=== PATIENT | female | born 1955 | race Caucasian/White ===

== ENCOUNTER 2021-04-03 08:19 | Observation (INO) ==
[2021-04-03] MEDS ORDERED: SODIUM CHLORIDE 0.9% 1000ML 1,000 ML IV ONE (08:42)
--- NOTE | 2021-04-03 08:54 | Emergency Department Note ---
History of Present Illness General Chief complaint: Illness Stated complaint: VOMITING, HALLUCINATIONS, LT SIDE ABDOMINAL PAIN Time Seen by Provider: 04/03/21 08:28 Source: patient and family (Son who is at the bedside) Mode of arrival: ambulatory Limitations: no limitations History of Present Illness Maximum Pain Intensity: 0 This patient comes in after feeling sick with diffuse abdominal pain. She says "I do not feel good". She had hip replacement done as an outpatient this past week on . It was a right hip. Dr. Leroy was her surgeon. She took oxycodone through Friday but stopped taking it as she did not feel she needed it. She has been nauseated since Friday and not been able to eat much. She had no bowel movement Friday but has had a small bowel movement since then she had no blood or melena stool or emesis. She is not eating or sleeping. Her son feels she is having mild hallucinations at times no fever. She fell twice on Friday and injured her left shoulder she does not think she hit her head or abdomen. She says she tripped on the walker. She had no chest pain s hortness of breath or pleurisy. No dysuria or hematuria. No back pain. No focal numbness or weakness. No cough. She has had the COVID vaccine and booster. Denies headache, neck pain, or stiffness. Home Medications Medication Instructions Recorded Confirmed Type Marijuana Topical 1 dose DAILY 03/08/21 03/29/21 History albuterol sulfate 90 mcg/actuation 1 inh INHALATION QID PRN 03/08/21 03/29/21 History aerosol inhaler (Ventolin HFA) levothyroxine 75 mcg tablet 75 mcg PO QAM 03/08/21 03/29/21 History multivitamin 1 tab PO QAM 03/08/21 03/08/21 History cephalexin 500 mg capsule 500 mg PO TID 7 Days #21 cap 03/29/21 Rx Allergies Allergy/AdvReac Type Severity Reaction Status Date / Time codeine AdvReac Unknown NAUSEA Verified 03/29/21 07:11 VOMITING oxycodone AdvReac Unknown BAD DREAMS Verified 03/29/21 07:11 Past Med/Surg History Medical History (Updated 04/03/21 @ 11:23 by Henry Swan MD) Asthma LAST INHALER USE 2-3 MONTHS AGO Fear of needles fear of needles/blood draws History of anesthesia reaction Pt reports significant HAs after neuraxial anesthesia in labor Hypothyroidism Surgical History (Updated 04/03/21 @ 11:23 by Henry Swan MD) History of cholecystectomy AND APPENDECTOMY-20 YRS AGO Family History Other Adopted Denies family history of No known health problems Social History Smoking Status: Never smoker Hx Alcohol Use: Yes Alcohol type: beer Hx Substance Use: Yes Substance Use Type Other:: MEDICAL MARIJUANA CARD-TOPICAL OIL PRN-1 X A DAY Preferred Language: Telugu Communication Ability: Effective Conciliator Required: No Beliefs That Will Affect Care: None Current Living Situation: Alone current occupational status: retired Feels Safe at Home: Yes Assistive Devices: Glasses Review of Systems A total of 10 systems reviewed and were otherwise negative Physical Exam Vital Signs Vital Signs - 24 hr 04/03/21 08:24 04/03/21 08:41 04/03/21 09:47 Temperature 36.7 C Temperature Source Temporal Artery Scan Pulse Rate 80 80 94 H Pulse Rate from SpO2 Sensor 89 Pulse Rhythm Regular Respiratory Rate 16 16 19 Blood Pressure 86/47 L Blood Pressure Mean 60 Pulse Oximetry 98 98 96 Oxygen Delivery Method Room Air Room Air Sepsis Recent Fever Within 48 Hours No Sepsis New/Unexplained Change in Mental Status No Sepsis Action Taken by Nursing No Action Required 04/03/21 09:48 04/03/21 10:00 04/03/21 10:01 Temperature Temperature Source Pulse Rate 90 83 84 Pulse Rate from SpO2 Sensor 91 H 82 83 Pulse Rhythm Respiratory Rate 21 27 H 20 Blood Pressure 150/79 H 156/91 H Blood Pressure Mean 102 112 Pulse Oximetry 99 99 100 Oxygen Delivery Method Sepsis Recent Fever Within 48 Hours Sepsis New/Unexplained Change in Mental Status Sepsis Action Taken by Nursing 04/03/21 10:30 Temperature Temperature Source Pulse Rate 77 Pulse Rate from SpO2 Sensor 79 Pulse Rhythm Respiratory Rate 22 Blood Pressure 125/77 Blood Pressure Mean 93 Pulse Oximetry 100 Oxygen Delivery Method Sepsis Recent Fever Within 48 Hours Sepsis New/Unexplained Change in Mental Status Sepsis Action Taken by Nursing General: Well developed well nourished older female who appears uncomfortable butin no acute respiratory distress, breathing comfortably on room air. Normal speech HEENT: Normal cephalic atraumatic. Pupils are equal round and reactive to light. Extraocular movements are intact. Oropharynx is pink with moist mucous membranes. No swelling of the mouth lips or tongue. Neck: Supple with a midline trachea. No meningeal signs or stiffness, no JVD or bruits. No Stridor. Chest: Clear to auscultation bilaterally. No wheezes or rhonchi. No increased work of breathing. There is a bruise on the left shoulder posteriorly but she is not tender Heart: Regular rate and rhythm without murmurs or gallops. Abdomen: Soft nontender, nondistended without rebound guarding or rigidity. Extremities: No cyanosis clubbing or edema. No calf tenderness or assymetry. There is an intact dressing that is dry on the right hip there is no redness around this. Spine/Back. Non tender to palpation. No CVA tenderness Skin: Good turgor without rashes. Neurologic exam: Cranial nerves two through 12 are intact. Motor and sensation are intact and symmetrical throughout. Course Administered Medications Discontinued Medications Sodium Chloride (Nss 1000ml) 1,000 mls @ 999 mls/hr IV .Q1H1M ONE Stop: 04/03/21 09:42 Last Infusion: 04/03/21 10:48 Dose: 0 mls/hr Documented by: [id number] Admin: 04/03/21 08:56 Dose: 999 mls/hr Documented by: [id number] Lorazepam (Ativan) 0.25 mg in 0.5 mls @ 0.5 mls/min IV NOW STA Stop: 04/03/21 09:13 Last Admin: 04/03/21 09:52 Dose: 0.5 mls/min Documented by: [id number] Ioversol (Optiray 320 100ml) 95 ml IV ONCE ONE Stop: 04/03/21 09:46 Last Admin: 04/03/21 09:38 Dose: 95 ml Documented by: [id number] Medical Decision Making Differential Diagnosis Dehydration, sepsis, infection, cardiac disease, Covid, postop complication, ileus, intra-abdominal process, trauma, electrolyte or metabolic abnormality, UTI Medical Records Attestation: I reviewed the patient's medical records. Home Medications Current Medication List: was personally reviewed by me Laboratory Data Attestation: I reviewed the patient's lab results. Result diagrams: 04/03/21 08:55 04/03/21 08:55 Lab Results 04/03/21 04/03/21 04/03/21 Range/Units 08:55 08:55 08:55 WBC 11.98 H (4.8-10.8) K/uL RBC 4.01 L (4.2-5.4) M/uL Hgb 12.6 (12.0-16.0) g/dL POC Hgb (12.0-16.0) g/dl Hct 36.2 L (37-47) % POC Hct (37-47) % MCV 90.3 (80-100) fL MCH 31.4 (25-34) pg MCHC 34.8 (32-36) g/dL RDW Std Deviation 42.7 (36.4-46.3) fL RDW Coeff of Soo 13.0 (11.5-14.5) % Plt Count 343 (130-400) K/uL MPV 10.5 H (7.4-10.4) fL Immature Gran % (Auto) 0.1 % Neut % (Auto) 77.1 % Lymph % (Auto) 14.5 % Hernando % (Auto) 7.4 % Eos % (Auto) 0.8 % Baso % (Auto) 0.1 % Neut # (Auto) 9.23 H (1.4-6.5) K/uL Lymph # (Auto) 1.74 (1.2-3.4) K/uL Hernando # (Auto) 0.89 H (0.11-0.59) K/uL Eos # (Auto) 0.10 (0-0.5) K/uL Baso # (Auto) 0.01 (0-0.2) K/uL Immature Gran # (Auto) 0.01 (0.00-0.02) K/uL PT 11.0 (9.0-12.0) Seconds INR 1.1 (0.9-1.1) APTT 27.2 (21.0-31.0) Seconds PTT Ratio 1.0 POC Sodium (135-144) mmol/L Sodium 133 L (136-145) mmol/L POC Potassium (3.3-5.0) mmol/L Potassium 2.9 L (3.5-5.1) mmol/L POC Chloride (101-112) mmol/L Chloride 100 (98-107) mmol/L Carbon Dioxide 22 (21-32) mmol/L POC Total CO2 (24-31) mmol/L Anion Gap 11 (3-11) POC Anion Gap (16-25) mmol/L POC BUN (7-18) mg/dl BUN 12 (6-23) mg/dl Creatinine 0.48 L (0.6-1.2) mg/dl POC Creatinine (0.6-1.3) mg/dl Est Cr Clr Drug Dosing 105.6 ml/min Est GFR ( Amer) 118.5 ml/min Est GFR (Non-Af Amer) 102.2 ml/min BUN/Creatinine Ratio 25.0 H (10-20) Glucose 129 H (70-99(Fasting)) mg/dl POC Glucose (other) (70-99) mg/dl Lactate (0.4-2.0) mmol/L Calcium 9.5 (8.5-10.1) mg/dl POC Ioniz Calcium Lynette (1.12-1.32) mmol/l Magnesium 2.0 (1.7-2.4) mg/dl Total Bilirubin 1.9 H (0.2-1.0) mg/dl AST 34 (13-39) U/L ALT 39 (7-52) U/L Alkaline Phosphatase 67 (34-104) U/L Troponin I < 0.03 (0-0.04) ng/ml Total Protein 6.6 (6.0-8.3) gm/dl Albumin 3.7 (3.4-5.0) gm/dl Globulin 2.9 (2.5-4.0) gm/dl Albumin/Globulin Ratio 1.3 (0.9-2) Procalcitonin (0-0.5) ng/ml Urine Color Urine Appearance (Clear) Urine pH (4.5-7.5) Ur Specific Cofield (1.000-1.030) Urine Protein (Negative) Urine Glucose (UA) (Negative) Urine Ketones (Negative) Urine Blood (Negative) Urine Nitrite (Negative) Urine Bilirubin (Negative) Urine Urobilinogen (Negative) Ur Leukocyte Esterase (Negative) Urine WBC (Auto) (0-5) /hpf Urine RBC (Auto) (0-4) /hpf U Hyaline Cast (Auto) (0-5) /lpf U Epithel Cells (Auto) (0-5) /lpf Urine Bacteria (Auto) (Negative) SARS-CoV-2, RNA, NAAT (NEGATIVE) 04/03/21 04/03/21 04/03/21 Range/Units 08:55 08:55 08:55 WBC (4.8-10.8) K/uL RBC (4.2-5.4) M/uL Hgb (12.0-16.0) g/dL POC Hgb (12.0-16.0) g/dl Hct (37-47) % POC Hct (37-47) % MCV (80-100) fL MCH (25-34) pg MCHC (32-36) g/dL RDW Std Deviation (36.4-46.3) fL RDW Coeff of Soo (11.5-14.5) % Plt Count (130-400) K/uL MPV (7.4-10.4) fL Immature Gran % (Auto) % Neut % (Auto) % Lymph % (Auto) % Hernando % (Auto) % Eos % (Auto) % Baso % (Auto) % Neut # (Auto) (1.4-6.5) K/uL Lymph # (Auto) (1.2-3.4) K/uL Hernando # (Auto) (0.11-0.59) K/uL Eos # (Auto) (0-0.5) K/uL Baso # (Auto) (0-0.2) K/uL Immature Gran # (Auto) (0.00-0.02) K/uL PT (9.0-12.0) Seconds INR (0.9-1.1) APTT (21.0-31.0) Seconds PTT Ratio POC Sodium (135-144) mmol/L Sodium (136-145) mmol/L POC Potassium (3.3-5.0) mmol/L Potassium (3.5-5.1) mmol/L POC Chloride (101-112) mmol/L Chloride (98-107) mmol/L Carbon Dioxide (21-32) mmol/L POC Total CO2 (24-31) mmol/L Anion Gap (3-11) POC Anion Gap (16-25) mmol/L POC BUN (7-18) mg/dl BUN (6-23) mg/dl Creatinine (0.6-1.2) mg/dl POC Creatinine (0.6-1.3) mg/dl Est Cr Clr Drug Dosing ml/min Est GFR ( Amer) ml/min Est GFR (Non-Af Amer) ml/min BUN/Creatinine Ratio (10-20) Glucose (70-99(Fasting)) mg/dl POC Glucose (other) (70-99) mg/dl Lactate 1.4 (0.4-2.0) mmol/L Calcium (8.5-10.1) mg/dl POC Ioniz Calcium Lynette (1.12-1.32) mmol/l Magnesium (1.7-2.4) mg/dl Total Bilirubin (0.2-1.0) mg/dl AST (13-39) U/L ALT (7-52) U/L Alkaline Phosphatase (34-104) U/L Troponin I (0-0.04) ng/ml Total Protein (6.0-8.3) gm/dl Albumin (3.4-5.0) gm/dl Globulin (2.5-4.0) gm/dl Albumin/Globulin Ratio (0.9-2) Procalcitonin < 0.05 (0-0.5) ng/ml Urine Color Urine Appearance (Clear) Urine pH (4.5-7.5) Ur Specific Cofield (1.000-1.030) Urine Protein (Negative) Urine Glucose (UA) (Negative) Urine Ketones (Negative) Urine Blood (Negative) Urine Nitrite (Negative) Urine Bilirubin (Negative) Urine Urobilinogen (Negative) Ur Leukocyte Esterase (Negative) Urine WBC (Auto) (0-5) /hpf Urine RBC (Auto) (0-4) /hpf U Hyaline Cast (Auto) (0-5) /lpf U Epithel Cells (Auto) (0-5) /lpf Urine Bacteria (Auto) (Negative) SARS-CoV-2, RNA, NAAT NEGATIVE (NEGATIVE) 04/03/21 04/03/21 Range/Units 09:05 09:49 WBC (4.8-10.8) K/uL RBC (4.2-5.4) M/uL Hgb (12.0-16.0) g/dL POC Hgb 12.6 (12.0-16.0) g/dl Hct (37-47) % POC Hct 37 (37-47) % MCV (80-100) fL MCH (25-34) pg MCHC (32-36) g/dL RDW Std Deviation (36.4-46.3) fL RDW Coeff of Soo (11.5-14.5) % Plt Count (130-400) K/uL MPV (7.4-10.4) fL Immature Gran % (Auto) % Neut % (Auto) % Lymph % (Auto) % Hernando % (Auto) % Eos % (Auto) % Baso % (Auto) % Neut # (Auto) (1.4-6.5) K/uL Lymph # (Auto) (1.2-3.4) K/uL Hernando # (Auto) (0.11-0.59) K/uL Eos # (Auto) (0-0.5) K/uL Baso # (Auto) (0-0.2) K/uL Immature Gran # (Auto) (0.00-0.02) K/uL PT (9.0-12.0) Seconds INR (0.9-1.1) APTT (21.0-31.0) Seconds PTT Ratio POC Sodium 134 L (135-144) mmol/L Sodium (136-145) mmol/L POC Potassium 2.8 L (3.3-5.0) mmol/L Potassium (3.5-5.1) mmol/L POC Chloride 98 L (101-112) mmol/L Chloride (98-107) mmol/L Carbon Dioxide (21-32) mmol/L POC Total CO2 25 (24-31) mmol/L Anion Gap (3-11) POC Anion Gap 14.0 L (16-25) mmol/L POC BUN 12 (7-18) mg/dl BUN (6-23) mg/dl Creatinine (0.6-1.2) mg/dl POC Creatinine 0.5 L (0.6-1.3) mg/dl Est Cr Clr Drug Dosing ml/min Est GFR ( Amer) ml/min Est GFR (Non-Af Amer) ml/min BUN/Creatinine Ratio (10-20) Glucose (70-99(Fasting)) mg/dl POC Glucose (other) 134 H (70-99) mg/dl Lactate (0.4-2.0) mmol/L Calcium (8.5-10.1) mg/dl POC Ioniz Calcium Lynette 1.22 (1.12-1.32) mmol/l Magnesium (1.7-2.4) mg/dl Total Bilirubin (0.2-1.0) mg/dl AST (13-39) U/L ALT (7-52) U/L Alkaline Phosphatase (34-104) U/L Troponin I (0-0.04) ng/ml Total Protein (6.0-8.3) gm/dl Albumin (3.4-5.0) gm/dl Globulin (2.5-4.0) gm/dl Albumin/Globulin Ratio (0.9-2) Procalcitonin (0-0.5) ng/ml Urine Color Yellow Urine Appearance Clear (Clear) Urine pH 7.5 (4.5-7.5) Ur Specific Cofield 1.006 (1.000-1.030) Urine Protein Negative (Negative) Urine Glucose (UA) Negative (Negative) Urine Ketones Trace H (Negative) Urine Blood Trace H (Negative) Urine Nitrite Negative (Negative) Urine Bilirubin Negative (Negative) Urine Urobilinogen Negative (Negative) Ur Leukocyte Esterase Negative (Negative) Urine WBC (Auto) 0 (0-5) /hpf Urine RBC (Auto) 0-4 (0-4) /hpf U Hyaline Cast (Auto) 0 (0-5) /lpf U Epithel Cells (Auto) 5-10 H (0-5) /lpf Urine Bacteria (Auto) Negative (Negative) SARS-CoV-2, RNA, NAAT (NEGATIVE) Imaging Data Attestation: I personally reviewed and interpreted this imaging study as follows: My Impression: Chest x-rayno acute infiltrate, failure, pneumothorax seen Radiologist's Impression: Chest X-Ray 04/03/21 08:41 XR chest 1V portable HISTORY: 65 years-old Female SEPSIS acute sepsis COMPARISON: None TECHNIQUE: Portable AP view of the chest FINDINGS: The cardiomediastinal and hilar silhouettes are within normal limits. No pneumothorax, pleural effusion, airspace consolidation or overt pulmonary edema. Bones of the chest appear grossly intact. IMPRESSION: No acute process. ACT 112: Negative or not required by law. The above report was generated using voice recognition software. It may contain grammatical, syntax or spelling errors. Electronically signed by: Anatoly Mcguire M.D. 04/03/2021 9:[address] 04/03/21 09:07 CT head/brain wo con CLINICAL HISTORY: 65 years-old Female with VOMITING, FALL. Acute head injury status post fall TECHNIQUE: Multiple axial CT images of the head were obtained without contrast. A dose lowering technique was utilized adhering to the principles of ALARA. CT DOSE: 863.46 mGy.cm COMPARISON: None. FINDINGS: No acute intracranial hemorrhage, midline shift, intracranial mass, hydrocephalus, territorial ischemia or abnormal extra-axial collection.. Mild white matter hypodensities suggest chronic microvascular ischemic disease. The calvarium is intact. The paranasal sinuses, mastoid air cells, and middle ear cavities are clear. IMPRESSION: No acute intracranial abnormality or calvarial fracture. ACT 112: Negative or not required by law. The above report was generated using voice recognition software. It may contain grammatical, syntax or spelling errors. Electronically signed by: Anatoly Mcguire M.D. 04/03/2021 10:07 AM Abdomen/Pelvis CT 04/03/21 09:08 CT SCAN OF THE ABDOMEN AND PELVIS WITH IV CONTRAST CLINICAL HISTORY: Generalized abdominal pain. Vomiting. Fall. COMPARISON STUDY: Pelvic radiograph dated 03/29/2021. TECHNIQUE: Following the IV administration of 95 cc of Optiray 320, CT scan of the abdomen and pelvis is performed from the lung bases to the proximal femora. Images are reviewed in the axial, sagittal, and coronal planes. IV contrast was administered without complication. A dose lowering technique was utilized adhering to the principles of ALARA. Examination is compromised by motion artifact. FINDINGS: Lung bases: The heart is normal in size and without pericardial effusion. The lung bases are clear noting mild bibasilar atelectasis. Liver: The contrast-enhanced liver is normal in size, contour, and attenuation. There is no intrahepatic biliary ductal dilatation. The hepatic veins and portal veins are patent. Gallbladder: Surgically absent. Spleen: Normal in size and attenuation. Pancreas: Unremarkable. Adrenal glands: Unremarkable. Kidneys: The contrast enhanced kidneys are normal in size and without hydronephrosis. The kidneys enhance symmetrically. Abdominal vasculature: The abdominal aorta is normal in course and caliber n oting moderate atherosclerotic calcification. Bowel: Question artifact versus mild infiltration around the distal stomach/duodenum. There is moderate colonic diverticulosis without CT evidence of acute diverticulitis. No bowel obstruction is identified. The appendix is not visualized. Peritoneum: There is trace fluid in the right paracolic gutter. No intraperitoneal free air is identified. Lymphadenopathy: None. Pelvic viscera: Evaluation of the pelvis is significantly degraded by streak ar tifact from bilateral hip arthroplasties. The pelvis viscera is not well- visualized. Imaged portions of the bladder grossly normal. Skeletal structures: The skeletal structures are osteopenic. There is mild lumbosacral spondylosis. No lytic or blastic lesions are seen. Bilateral hip arthroplasties are in place. Soft tissues: Soft tissue infiltration overlies the right hip/gluteal region, with gas seen throughout the right gluteal musculature. A serpiginous fluid collection is seen overlying the lateral aspect of the right hip and extending into the right gluteus medius muscle. A component on image #302 measures 3.3 x 1.6 cm. IMPRESSION: 1. Soft tissue edema is seen overlying the right hip and throughout the right gluteal region, with foci of soft tissue gas throughout the right gluteal musculature. Additionally, there is a serpiginous fluid collection overlying the lateral aspect of the right hip and extending into the right gluteus medius. Given history of recent hip arthroplasty this may represent expected postoperative change. The sterility of these findings cannot be evaluated by imaging and clinical correlation will be required. 2. Trace nonspecific free fluid is seen in the right paracolic gutter. 3. Question artifact versus mild infiltration around the distal stomach/duodenum. Correlate clinically for evidence of gastritis/duodenitis. This could be further assessed with endoscopy if clinically warranted. 4. Moderate colonic diverticulosis without CT evidence of acute diverticulitis. 5. Additional findings as above. ACT 112: Negative or not required by law. Electronically signed by: Harley Parrish M.D. 04/03/2021 10:10 AM ECG Data Attestation: I personally reviewed and interpreted this ECG as follows: Indication: + nausea, + vomiting and + weakness Rate (beats per minute): 87 Rhythm: + normal sinus ECG Intervals/blocks: + Right Bundle branch block, + Prolonged QT and + Normal WI ECG Stephens: + Normal ECG ST segments: + Normal ST segments ECG Findings: + Other (T waves are flattened inferiorly); no PACs or no PVCs Comparison ECG Date: from (03/14/21) Change: the following changes noted (QTC is mildly prolonged and T waves are flattened inferiorly) MDM Narrative This patient comes in as described above. She is postop from a hip replacement she has not been eating or drinking. She does not feel well she also is of abdominal discomfort. Her abdomen is benign. IV access established a full sepsis type work-up was obtained she was hydrated with IV normal saline. She is concerned that Zofran triggered her symptoms as they did not start till she started taking this. She fell twice last week as well. IV access was established, blood cultures were obtained. she was given an IV normal saline bolus, i-STAT labs were obtained, chest x-ray, EKG, and CAT scans. She was also Covid tested. She was reassessed frequently. Urinalysis was also ordered. She was hypotensive in triage however she is very slender and tends to run a low blood pressure according to her family however we checked it when she got back in the room she was normotensive. EKG shows a baseline right bundle branch block. There may be some T wave flattening inferiorly. Her QTc is borderline prolonged at just above 500. She has no fever here her white count is mildly elevated 11 she has a normal hemoglobin. Covid testing was negative. Chest x- ray does not show congestive heart failure, pneumonia or pneumothorax. Lactic acid was normal which would go against sepsis. CAT scan of the head was negative. CAT scan of the abdomen shows what is likely postoperative changes and she may have a gastritis. Her potassium did come back low 2.9. The rest electrolytes look okay. I do think she is dehydrated. I have discussed the case with Dr. Leroy is well he feels is most likely postop changes. I did consult Dr. Manuel as I do think she needs to be admitted for hydration. The Ativan 0.25 mg IV that she got does seem to be helping. The fluids also seem to be helping. She will be admitted for further treatment and evaluation. Continuous cardiac monitoring: Orders placed in EMR for continuous cardiac monitoring. Upon my interpretation the patient was noted to be in normal sinus rhythm with a rate of 85. Impression & Plan Abdominal pain, Acute dehydration, Nausea & vomiting, Acute hypokalemia, Lab test negative for COVID-19 virus Discharge Plan Visit Data Chief Complaint: Illness Stated Complaint: VOMITING, HALLUCINATIONS, LT SIDE ABDOMINAL PAIN ED Provider: Clarke Ramirez Discharge Problem: Abdominal pain, Acute dehydration, Nausea & vomiting, Acute hypokalemia, Lab test negative for COVID-19 virus Forms Stand Alone Forms: CO Everywhere Prescriptions Prescriptions: No Action multivitamin Tablet 1 tab PO QAM RF: 0 levothyroxine 75 mcg Tablet 75 mcg PO QAM RF: 0 albuterol sulfate [Ventolin HFA] 90 mcg/actuation Hfa Aerosol Inhaler 1 inh INHALATION QID PRN (Reason: Wheezing) RF: 0 Marijuana Topical 1 dose DAILY RF: 0 cephalexin 500 mg capsule 500 mg PO TID 7 Days Qty: 21 RF: 0 Referrals Referrals: Christopher Melendrez [Primary Care Provider] -
[2021-04-03] MEDS ORDERED: LORazepam 0.25 MG/0.5 ML VIAL IV STA (09:12)
[2021-04-03 09:19] LABS: Basophils # (auto) 0.01 K/uL (0-0.2); Basophils % (auto) 0.1 %; Eosinophils % (auto) 0.8 %; Hematocrit (blood only) 36.2 % (37-47); Hemoglobin 12.6 g/dL (12.0-16.0); Immature Granulocytes # (auto) 0.01 K/uL (0.00-0.02); Immature Granulocytes % (auto) 0.1 %; Lymphocytes # (auto) 1.74 K/uL (1.2-3.4); Lymphocytes % (auto) 14.5 %; Mean Corpuscular Hemoglobin 31.4 pg (25-34); Mean Corpuscular Hgb Conc 34.8 g/dL (32-36); Mean Corpuscular Volume 90.3 fL (80-100); Mean Platelet Volume 10.5 fL (7.4-10.4); Monocytes # (auto) 0.89 K/uL (0.11-0.59); Monocytes % (auto) 7.4 %; Neutrophils # (auto) 9.23 K/uL (1.4-6.5); Neutrophils % (auto) 77.1 %; Platelet Count 343 K/uL (130-400); RDW Standard Deviation 42.7 fL (36.4-46.3); Red Blood Count 4.01 M/uL (4.2-5.4); White Blood Count 11.98 K/uL (4.8-10.8)
[2021-04-03 09:19] LABS: iSTAT Creatinine 0.5 mg/dl (0.6-1.3); iSTAT Hemoglobin 12.6 g/dl (12.0-16.0); iSTAT Ionized Calcium 1.22 mmol/l (1.12-1.32); iSTAT Potassium 2.8 mmol/L (3.3-5.0)
--- NOTE | 2021-04-03 09:25 | XRay Report ---
XR chest 1V portable HISTORY: 65 years-old Female SEPSIS acute sepsis COMPARISON: None TECHNIQUE: Portable AP view of the chest FINDINGS: The cardiomediastinal and hilar silhouettes are within normal limits. No pneumothorax, pleural effusi on, airspace consolidation or overt pulmonary edema. Bones of the chest appear grossly intact. IMPRESSION: No acute process. ACT 112: Negative or not required by law. The above report was generated using voice recognition software. It may contain grammatical, syntax o r spelling errors. Electronically signed by: Anatoly Mcguire M.D. 04/03/2021 9:23 AM
[2021-04-03 09:26] LABS: INR 1.1 (0.9-1.1); Partial Thromboplastin Time 27.2 Seconds (21.0-31.0)
[2021-04-03 09:34] LABS: Alanine Aminotransferase 39 U/L (7-52); Albumin Globulin Ratio 1.3 (0.9-2); Albumin Level 3.7 gm/dl (3.4-5.0); Alkaline Phosphatase 67 U/L (34-104); Anion Gap 11 (3-11); Aspartate Aminotransferase 34 U/L (13-39); Bilirubin,Total 1.9 mg/dl (0.2-1.0); Blood Urea Nitrogen 12 mg/dl (6-23); Calcium 9.5 mg/dl (8.5-10.1); Carbon Dioxide 22 mmol/L (21-32); Chloride 100 mmol/L (98-107); Creatinine Clr Calc Pharmacy 105.6 ml/min; Est GFR (African American) 118.5 ml/min; Est GFR (Non-African American) 102.2 ml/min; Globulin 2.9 gm/dl (2.5-4.0); Glucose 129 mg/dl (70-99(Fasting)); Potassium 2.9 mmol/L (3.5-5.1); Sodium 133 mmol/L (136-145); Total Protein 6.6 gm/dl (6.0-8.3)
[2021-04-03 09:36] LABS: Troponin I < 0.03 ng/ml (0-0.04)
[2021-04-03] MEDS ORDERED: OPTIRAY 320 100ml IV ONE (09:45)
[2021-04-03 10:06] LABS: Appearance Urine Clear (Clear); Bacteria Urine Automated Negative (Negative); Bilirubin Urine Negative (Negative); Blood Urine Trace (Negative); Cast Urine Automated 0 /lpf (0-5); Color Urine Yellow; Glucose Urine UA Negative (Negative); Ketones Urine Trace (Negative); Leukocyte Esterase Urine Negative (Negative); Nitrite Urine Negative (Negative); Protein Urine Negative (Negative); RBC Urine Automated 0-4 /hpf (0-4); Specific Gravity Urine 1.006 (1.000-1.030); Urobilinogen Urine Negative (Negative); WBC Urine Automated 0 /hpf (0-5); pH Urine 7.5 (4.5-7.5)
--- NOTE | 2021-04-03 10:08 | CT Scan Report ---
CT head/brain wo con CLINICAL HISTORY: 65 years-old Female with VOMITING, FALL. Acute head injury status post fall TECHNIQUE: Multiple axial CT images of the head were obtained without contrast. A dose lowering tech nique was utilized adhering to the principles of ALARA. CT DOSE: 863.46 mGy.cm COMPARISON: None. FINDINGS: No acute intracranial hemorrhage, midline shift, intracranial mass, hydrocephalus, territorial ischem ia or abnormal extra-axial collection.. Mild white matter hypodensities suggest chronic microvascular ischemic disease. The calvarium is intact. The paranasal sinuses, mastoid air cells, and middle ear cavities are clear . IMPRESSION: No acute intracranial abnormality or calvarial fracture. ACT 112: Negative or not required by law. The above report was generated using voice recognition software. It may contain grammatical, syntax o r spelling errors. Electronically signed by: Anatoly Mcguire M.D. 04/03/2021 10:07 AM
--- NOTE | 2021-04-03 10:11 | CT Scan Report ---
CT SCAN OF THE ABDOMEN AND PELVIS WITH IV CONTRAST CLINICAL HISTORY: Generalized abdominal pain. Vomiting. Fall. COMPARISON STUDY: Pelvic radiograph dated 03/29/2021. TECHNIQUE: Following the IV administration of 95 cc of Optiray 320, CT scan of the abdomen and pelvi s is performed from the lung bases to the proximal femora. Images are reviewed in the axial, sagittal , and coronal planes. IV contrast was administered without complication. A dose lowering technique wa s utilized adhering to the principles of ALARA. Examination is compromised by motion artifact. FINDINGS: Lung bases: The heart is normal in size and without pericardial effusion. The lung bases are clear no ting mild bibasilar atelectasis. Liver: The contrast-enhanced liver is normal in size, contour, and attenuation. There is no intrahepa tic biliary ductal dilatation. The hepatic veins and portal veins are patent. Gallbladder: Surgically absent. Spleen: Normal in size and attenuation. Pancreas: Unremarkable. Adrenal glands: Unremarkable. Kidneys: The contrast enhanced kidneys are normal in size and without hydronephrosis. The kidneys enh ance symmetrically. Abdominal vasculature: The abdominal aorta is normal in course and caliber noting moderate atheroscle rotic calcification. Bowel: Question artifact versus mild infiltration around the distal stomach/duodenum. There is modera te colonic diverticulosis without CT evidence of acute diverticulitis. No bowel obstruction is identi fied. The appendix is not visualized. Peritoneum: There is trace fluid in the right paracolic gutter. No intraperitoneal free air is identi fied. Lymphadenopathy: None. Pelvic viscera: Evaluation of the pelvis is significantly degraded by streak artifact from bilateral hip arthroplasties. The pelvis viscera is not well-visualized. Imaged portions of the bladder grossly normal. Skeletal structures: The skeletal structures are osteopenic. There is mild lumbosacral spondylosis. N o lytic or blastic lesions are seen. Bilateral hip arthroplasties are in place. Soft tissues: Soft tissue infiltration overlies the right hip/gluteal region, with gas seen throughou t the right gluteal musculature. A serpiginous fluid collection is seen overlying the lateral aspect of the right hip and extending into the right gluteus medius muscle. A component on image #302 measur es 3.3 x 1.6 cm. IMPRESSION: 1. Soft tissue edema is seen overlying the right hip and throughout the right gluteal region, with fo ci of soft tissue gas throughout the right gluteal musculature. Additionally, there is a serpiginous fluid collection overlying the lateral aspect of the right hip and extending into the right gluteus m edius. Given history of recent hip arthroplasty this may represent expected postoperative change. The sterility of these findings cannot be evaluated by imaging and clinical correlation will be required . 2. Trace nonspecific free fluid is seen in the right paracolic gutter. 3. Question artifact versus mild infiltration around the distal stomach/duodenum. Correlate clinicall y for evidence of gastritis/duodenitis. This could be further assessed with endoscopy if clinically w arranted. 4. Moderate colonic diverticulosis without CT evidence of acute diverticulitis. 5. Additional findings as above. ACT 112: Negative or not required by law. Electronically signed by: Harley Parrish M.D. 04/03/2021 10:10 AM
--- NOTE | 2021-04-03 10:35 | History & Physical Report ---
Date of Service April 03, 2021 Assessment & Plan (1) Nausea & vomiting: Plan: Nanci is a 65-year-old female with history of right total hip arthroplasty 03/29/2021 who was discharged home in who presents with worsening nausea, vomiting, weakness, chills without fever, and visual hallucinations.Hypotensive 80s on admit, normotensive after fluids. CT-H negative, CT-Ab normal. Nausea/Vomiting, suspected gastritis/duodenitis Hypotensive on arrival to ER in the setting of poor p.o. intake and vomiting. Normotensive following fluid resuscitation Clinically with epigastric tenderness, CT as below suggestive of duodenitis/gastritis Leukocytosis to 11.98, last vomiting approximately 18 h prior to admission, nonbilious/bloody Sodium 133, potassium 2.9 Creatinine normal 0.48 No transaminitis Troponin negative Procalcitonin normal UA with trace ketones/blood/epithelial cells, no bacteria. UC pending. Covid negative CTA/P: Soft tissue edema is seen overlying the right hip and throughout the right gluteal region, with foci of soft tissue gas throughout the right gluteal musculature. Additionally, there is a serpiginous fluid collection overlying the lateral aspect of the right hip and extending into the right gluteus medius. Given history of recent hip arthroplasty this may represent expected postoperative change. The sterility of these findings cannot be evaluated by imaging and clinical correlation will be required. Trace nonspecific free fluid is seen in the right paracolic gutter. Question artifact versus mild infiltration around the distal stomach/duodenum. Correlate clinically for evidence of gastritis/duodenitis. This could be further assessed with endoscopy if clinically warranted. Moderate colonic diverticulosis without CT evidence of acute diverticulitis. CT with some inflammation surrounding the stomach and proximal duodenum, no signs of obstruction/ileus.? Gastritis Postoperative changes appreciated on A/P, cannot include infectious changes as noted below. Blood cultures pending, p.o. Keflex converted to IV cefazolin. Patient has not taken her postop antibiotics due to nausea. Pepcid IV twice daily, Protonix (p.o., IV on backorder), and will add pyridoxine 50 mg. Defer antihistamine commendation due to hallucinations, may consider if nausea intractable. Defer QT prolonging antiemetics due to QT 505 (2) Hallucination, visual: Plan: Visual Hallucinations, concern for metabolic encephalopathy CThead: No acute findings Chest x-ray: No acute findings Blood culture pending -EKG as below Patient is cognitively intact at hospitalist assessment, and well oriented. She endorses hallucinations in which she feels like pictures have people in them that are staring at her, her son endorses this and says this includes pictures that do not have any people actually on them, although patient and her son note that these hallucinations are focal and patient has good insight into this and denies other visual hallucinations, auditory hallucinations, and command hallucinations. She does not have a history of previous hallucinations or psychosis, although does have a history of anxiety treated with medical marijuana which she has not taken for over 1 week. TSH with reflex T4 pending Infectious eval as otherwise noted Low suspicion for toxic encephalopathy as patient has not been taking narcotics for several days, DDx includes infectious/metabolic (3) Hypokalemia: Plan: Hypokalemia Due to above, repleted. Patient very nauseous cannot tolerate pills, will trial p.o. tomorrow if nausea improved and give David repletion 60 M EQ at this time Continue to follow BMP daily Magnesium normal EKG: Normal sinus rhythm, PVCs. QT C505, defer QT prolonging meds. RBBB present. ST segment abnormalities initially concerning for depressions in leads I, 2, 3, V2, V4, V5, V6. These were compared to prior EKG 03/14/21 and appear to be the same. Patient has been clinically without chest pain/cardiac symptoms, and has a negative troponin on admission. (4) History of total right hip arthroplasty: Plan: - See above Patient has not been able to take postop antibiotics due to nausea/vomiting, and has had recurrent chills in the previous few days Surgical site is clean, dry, intact without erythema/purulence suggestive of infection, is tender inferior and medial to her incision although potentially consistent with appropriate postop tenderness CTA/P showing some gas as above, although this can be consistent with expected postop changes Ortho to evaluate, will convert p.o. Keflex to IV and continue at this time. Cultures pending (5) Abdominal pain: Plan: - See above (6) Positive colorectal cancer screening using Cologuard test: Plan: Abnormal Outpt Cologuard - Pending outpatient colonscopy for followup - No FHX colorectal cancer. Minimal information about family. - No signs of ileus/obstruction/large mass on CT (7) Asthma: Plan: Asthma, mild intermittent Patient has not used inhalers in several months, no wheezing on exam Albuterol nebulizer as needed (8) Hypothyroidism: Plan: Hypothyroidism Continue Synthroid 75 mcg daily TSH/T4 pending (9) Hyponatremia: Plan: Mild, sodium 134 in the setting of poor p.o. intake and clinical volume depletion Fluids and repletion as above If drops, would obtain serum OSM/urine sodium/urine OSM for additional eval BMP daily Plan: DVT prophylaxis: SCDs, Lovenox Diet: Regular as tolerated not tolerating at this time due to nausea Disposition: Medical surgical CODE STATUS: Full code, discussed with patient and son at bedside. Surrogate decision maker and emergency would be her son. Of note patient does not wish for anyone other than her son to know that she is in the hospital, but is okay with her son being giving updates by phone and code word should be requested to confirm patient's presence in the hospital should anyone call History of Present Illness Primary Care Provider: Christopher Melendrez Nanci is a six 5-year-[age] female with history of right total hip arthroplasty 03/29/2021 who was discharged home in who presents with worsening nausea, vomiting, weakness, chills without fever, and visual hallucinations.Hypotensive 80s on admit, normotensive after fluids. CT-H negative, CT-Ab normal. Ativan QT prolonged, held Zofran Patient was discharged 03/29/2021. Did take Percocet through Friday. Vomiting over the weekend. Unable to keep food down over the weekend. 2x falls on the walker . Oxycodone made her feel disoriented. Fell 2x in the bathroom. hot and cold chills and thirsty for several days. Endorses strange visual hallucinations, has felt like pictures have people in them looking at her, no history of hallucinations. Stopped her oxycodone Friday night (per patient had no pain in the hip just sore). Friday started getting nauseus, so took anti-nausea medication which seemed to make things worse (more nauseus + vomiting, vomiting not correlated with meals). Continues to have nausea but no main. No fever at home. Hardly eating, no appetite. Food doesn't make her nauseus, just has no appetite 'have to try and force food down.' Very tired and exhausted, but can't sleep. 'Just feel to sick to sleep.' R hip motion is actually doign well, working with home PT and has good RoM and no pain with exertion. Is tender inferior and superior to surgical incision but without crepitus, no erythema/warmth. She has not been able to take any of her postop antibiotics (Keflex) due to nausea. Denies chest pain, chest pressure, shortness of breath, difficulty breathing. Denies extremity pain, numbness, tingling. Denies focal weakness. Denies auditory hallucinations, command hallucinations. MM card last friday prior to surgery, none recently. For anxiety/insomnia Has started to have pain in her stomach and LLQ of the abdomen. Medical History: Reviewed Medications: Reviewed Surgical History: Reviewed Allergies: Reviewed Social History: Denies recent alcohol use. No tobacco use. Does have medical marijuana prescription for anxiety but has not used since Friday prior to surgery, and does not wish to use at this time as "the thought of it makes me nauseous ". Code Status: Surrogate would be son. Full Code. Allergies Allergy/AdvReac Type Severity Reaction Status Date / Time codeine AdvReac Unknown NAUSEA Verified 03/29/21 07:11 VOMITING oxycodone AdvReac Unknown BAD DREAMS Verified 03/29/21 07:11 Home Medications Medication Instructions Recorded Confirmed Type Marijuana Topical 1 dose DAILY 03/08/21 03/29/21 History albuterol sulfate 90 mcg/actuation 1 inh INHALATION QID PRN 03/08/21 03/29/21 History aerosol inhaler (Ventolin HFA) levothyroxine 75 mcg tablet 75 mcg PO QAM 03/08/21 03/29/21 History multivitamin 1 tab PO QAM 03/08/21 03/08/21 History cephalexin 500 mg capsule 500 mg PO TID 7 Days #21 cap 03/29/21 Rx Past Med/Surg History Medical History Asthma LAST INHALER USE 2-3 MONTHS AGO Fear of needles fear of needles/blood draws History of anesthesia reaction Pt reports significant HAs after neuraxial anesthesia in labor Hypothyroidism Surgical History History of cholecystectomy AND APPENDECTOMY-20 YRS AGO Family History Other Adopted Denies family history of No known health problems Social History Smoking Status: Never smoker Hx Alcohol Use: Yes Alcohol type: beer Hx Substance Use: Yes Substance Use Type Other:: MEDICAL MARIJUANA CARD-TOPICAL OIL PRN-1 X A DAY Preferred Language: Kiswahili Communication Ability: Effective Envelope Machine Operator Required: No Beliefs That Will Affect Care: None Current Living Situation: Alone current occupational status: retired Feels Safe at Home: Yes Assistive Devices: Glasses Review of Systems Review of Systems: All systems reviewed & are unremarkable except as noted in Subjective Physical Exam Physical Exam: General: A&Ox3. NAD. Cooperative. HEENT: Atraumatic, normocephalic. Dual acuity and hearing grossly intact. Pulm: CTAB A&P. -wheezes, -rales, -rhonchi. Symmetrical chest rise. No increase in work of breathing. No respiratory distress. Cardiac: RRR, -mrg. Radial pulses intact and symmetrical. Abdominal: Nontender, nondistended, soft. BS present. Extremity: Right hip with postsurgical dressing intact, C/D/I. Surgical incision visualized by dressing removal, incision is intact, clean, dry without dehiscence, erythema, purulence, or discharge. Dressing replaced. Patient is tender medially and distally for about 4-5 cm to the incision. Left lower extremity intact, atraumatic. Sensation to soft touch intact in feet bilaterally, and hands bilaterally. Ankle dorsiflexion/plantar flexion 5/5 strength bilaterally, journalism instructor strength 5/5 bilaterally. PT pulse intact bilaterally, no lower extremity edema. Results & Data Results & Data ([facility]) Vital Signs (Past 12 Hours) Vital Signs Temp Pulse Resp BP Pulse Ox 04/03/21 08:41 80 16 98 04/03/21 08:24 36.7 C 80 16 86/47 L 98 PG Care Time/CCT Total # of Minutes Spent Total Time Spent with Patient: Total time spent is greater than 50% in coordination of care (as documented) at patient's floor/unit and/or counseling patient: Coding Level of Care Code INT OBSERVATION CARE 70M LVL 3 Diagnoses Hallucination, visual R44.1 Abdominal pain R10.9 Nausea & vomiting R11.2 History of total right hip arthroplasty Z96.641 Hypokalemia E87.6 Positive colorectal cancer screening using Cologuard test R19.5 Asthma J45.909 Hypothyroidism E03.9 Hyponatremia E87.1
[2021-04-03] MEDS ORDERED: POTASSIUM CHLORIDE / WTR 10 MEQ/100 ML PLCT IV STA (11:40)
[2021-04-03] MEDS ORDERED: LORazepam 0.5 MG/1 ML VIAL IV PRN (11:40)
--- NOTE | 2021-04-03 11:53 | Electrocardiogram Report ---
Test Reason : Blood Pressure : / mmHG Vent. Rate : 087 BPM Atrial Rate : 087 BPM P-R Int : 136 ms QRS Dur : 164 ms QT Int : 420 ms P-R-T Axes : 075 063 035 degrees QTc Int : 505 ms Sinus rhythm with occasional Premature ventricular complexes Right bundle branch block Abnormal ECG When compared with ECG of 14-MAR-2021 13:42, Premature ventricular complexes are now Present Confirmed by Raúl Loaiza ([id number]) on 04/03/2021 11:53:23 AM Referred By: REFERRED SELF Confirmed By:Raúl Loaiza
[2021-04-03] MEDS: PANTOprazole 40 MG TAB PO SCH (12:08)
--- NOTE | 2021-04-03 12:57 | Orthopedic Consultation ---
Date of Consultation April 03, 2021 Assessment & Plan (1) History of total right hip arthroplasty: Patient be admitted by medical service. I spoke with Dr. Pacheco and he feels that the patient has some gastritis and duodenitis that are causing her to be nauseous and have vomiting. They are going to treat her with IV famotidine and Protonix. He states that the patient will need admitted because she is dehydrated as well and they will do IV fluids and also provide her with IV potassium. We will continue to follow patient while she is in-house. She can be weightbearing as tolerated in regular a cane or walker Silverlon dressing is to be kept in place. Supervising Physician Co-Signing Physician Notes I saw and examined patient. Agree with above note. History of Present Illness Reason for Consultation: 5 days status post right total hip arthroplasty Requesting Physician: Dr. Swan Attending Physician: Dr. Patrick History of Present Illness This 65-year-old female was seen in the emergency department today with complaints of weakness, abdominal pain, nausea and vomiting since Friday. Patient states she did have an episode of diarrhea on Friday. She feels that this was because due to taking the Zofran. Patient states she also fell 2 times over the weekend when she tripped on her walker landing on her left shoulder but states it is fine now. She did not injure her head or hip. She denies chest pain, shortness of breath, fever, chills, sweats or numbness or tingling in the right lower extremity Allergies Allergy/AdvReac Type Severity Reaction Status Date / Time codeine AdvReac Unknown NAUSEA Verified 04/03/21 12:21 VOMITING oxycodone AdvReac Unknown BAD DREAMS Verified 04/03/21 12:21 Home Medications Medication Instructions Recorded Confirmed Type Marijuana Topical 1 dose DAILY 03/08/21 04/03/21 History albuterol sulfate 90 mcg/actuation 1 inh INHALATION QID PRN 03/08/21 04/03/21 History aerosol inhaler (Ventolin HFA) levothyroxine 75 mcg tablet 75 mcg PO QAM 03/08/21 04/03/21 History multivitamin 1 tab PO QAM 03/08/21 04/03/21 History cephalexin 500 mg capsule 500 mg PO TID 7 Days #21 cap 03/29/21 04/03/21 Rx coenzyme Q10 30 mg capsule (CoQ-10) 30 mg PO DAILY 04/03/21 04/03/21 History Patient History Medical History Asthma LAST INHALER USE 2-3 MONTHS AGO Fear of needles fear of needles/blood draws History of anesthesia reaction Pt reports significant HAs after neuraxial anesthesia in labor Hypothyroidism Surgical History History of cholecystectomy AND APPENDECTOMY-20 YRS AGO Family History Other Adopted Denies family history of No known health problems Social History Smoking Status: Former smoker Hx Alcohol Use: No Hx Substance Use: Yes Last Used Substance Other:: Has medical marijuana card Substance Use Type Other:: MEDICAL MARIJUANA CARD-TOPICAL OIL PRN-1 X A DAY Preferred Language: Malagasy Communication Ability: Effective [employer] Rew[employer]er Required: No Beliefs That Will Affect Care: None Current Living Situation: Alone Current Living Situation Comment: Lives with her son and current occupational status: retired Feels Safe at Home: Yes Safety Concerns: Feels Safe At This Time Assistive Devices: Walker Review of Systems Review of Systems: All systems reviewed & are unremarkable except as noted in Subjective Physical Exam Physical Exam: Right hip: Silverlon dressing is clean dry and intact. One of the physicians did not pull it up from the bottom so I reinforced it with some paper tape. Patient tolerated passive hip flexion to 90 degrees. She had no pain with light passive external rotation. She has some twinge of pain with light passive internal rotation. She was able to perform a straight leg raise test. She was able to actively dorsi and plantarflex her foot without difficulty. Quad strength was 3 out of 5. Patient was neurovascularly intact in the right lower extremity. Results & Data ([facility]) Vital Signs (Past 12 Hours) Vital Signs Temp Pulse Resp BP Pulse Ox 04/03/21 12:30 72 19 163/90 H 98 04/03/21 12:00 81 19 168/96 H 04/03/21 10:30 77 22 125/77 100 04/03/21 10:01 84 20 156/91 H 100 04/03/21 10:00 83 27 H 99 04/03/21 09:48 90 21 150/79 H 99 04/03/21 09:47 94 H 19 96 04/03/21 08:41 80 16 98 04/03/21 08:24 36.7 C 80 16 86/47 L 98 Diagnostic Findings Laboratory Results WBC 11.98 K/uL (4.8-10.8) H 04/03/21 08:55 RBC 4.01 M/uL (4.2-5.4) L 04/03/21 08:55 Hgb 12.6 g/dL (12.0-16.0) 04/03/21 08:55 POC Hgb 12.6 g/dl (12.0-16.0) 04/03/21 09:05 Hct 36.2 % (37-47) L 04/03/21 08:55 POC Hct 37 % (37-47) 04/03/21 09:05 MCV 90.3 fL (80-100) 04/03/21 08:55 MCH 31.4 pg (25-34) 04/03/21 08:55 MCHC 34.8 g/dL (32-36) 04/03/21 08:55 RDW Std Deviation 42.7 fL (36.4-46.3) 04/03/21 08:55 RDW Coeff of Soo 13.0 % (11.5-14.5) 04/03/21 08:55 Plt Count 343 K/uL (130-400) 04/03/21 08:55 MPV 10.5 fL (7.4-10.4) H 04/03/21 08:55 Immature Gran % (Auto) 0.1 % 04/03/21 08:55 Neut % (Auto) 77.1 % 04/03/21 08:55 Lymph % (Auto) 14.5 % 04/03/21 08:55 [place] % (Auto) 7.4 % 04/03/21 08:55 Eos % (Auto) 0.8 % 04/03/21 08:55 Baso % (Auto) 0.1 % 04/03/21 08:55 Neut # (Auto) 9.23 K/uL (1.4-6.5) H 04/03/21 08:55 Lymph # (Auto) 1.74 K/uL (1.2-3.4) 04/03/21 08:55 [place] # (Auto) 0.89 K/uL (0.11-0.59) H 04/03/21 08:55 Eos # (Auto) 0.10 K/uL (0-0.5) 04/03/21 08:55 Baso # (Auto) 0.01 K/uL (0-0.2) 04/03/21 08:55 Immature Gran # (Auto) 0.01 K/uL (0.00-0.02) 04/03/21 08:55 PT 11.0 Seconds (9.0-12.0) 04/03/21 08:55 INR 1.1 (0.9-1.1) 04/03/21 08:55 APTT 27.2 Seconds (21.0-31.0) 04/03/21 08:55 PTT Ratio 1.0 04/03/21 08:55 POC Sodium 134 mmol/L (135-144) L 04/03/21 09:05 Sodium 133 mmol/L (136-145) L 04/03/21 08:55 POC Potassium 2.8 mmol/L (3.3-5.0) L 04/03/21 09:05 Potassium 2.9 mmol/L (3.5-5.1) L 04/03/21 08:55 POC Chloride 98 mmol/L (101-112) L 04/03/21 09:05 Chloride 100 mmol/L (98-107) 04/03/21 08:55 Carbon Dioxide 22 mmol/L (21-32) 04/03/21 08:55 POC Total CO2 25 mmol/L (24-31) 04/03/21 09:05 Anion Gap 11 (3-11) 04/03/21 08:55 POC Anion Gap 14.0 mmol/L (16-25) L 04/03/21 09:05 POC BUN 12 mg/dl (7-18) 04/03/21 09:05 BUN 12 mg/dl (6-23) 04/03/21 08:55 Creatinine 0.48 mg/dl (0.6-1.2) L 04/03/21 08:55 POC Creatinine 0.5 mg/dl (0.6-1.3) L 04/03/21 09:05 Est Cr Clr Drug Dosing 105.6 ml/min 04/03/21 08:55 Est GFR ( Amer) 118.5 ml/min 04/03/21 08:55 Est GFR (Non-Af Amer) 102.2 ml/min 04/03/21 08:55 BUN/Creatinine Ratio 25.0 (10-20) H 04/03/21 08:55 Glucose 129 mg/dl (70-99(Fasting)) H 04/03/21 08:55 POC Glucose (other) 134 mg/dl (70-99) H 04/03/21 09:05 Lactate 1.4 mmol/L (0.4-2.0) 04/03/21 08:55 Calcium 9.5 mg/dl (8.5-10.1) 04/03/21 08:55 POC Ioniz Calcium [place] 1.22 mmol/l (1.12-1.32) 04/03/21 09:05 Magnesium 2.0 mg/dl (1.7-2.4) 04/03/21 08:55 Total Bilirubin 1.9 mg/dl (0.2-1.0) H 04/03/21 08:55 AST 34 U/L (13-39) 04/03/21 08:55 ALT 39 U/L (7-52) 04/03/21 08:55 Alkaline Phosphatase 67 U/L (34-104) 04/03/21 08:55 Troponin I < 0.03 ng/ml (0-0.04) 04/03/21 08:55 Total Protein 6.6 gm/dl (6.0-8.3) 04/03/21 08:55 Albumin 3.7 gm/dl (3.4-5.0) 04/03/21 08:55 Globulin 2.9 gm/dl (2.5-4.0) 04/03/21 08:55 Albumin/Globulin Ratio 1.3 (0.9-2) 04/03/21 08:55 Procalcitonin < 0.05 ng/ml (0-0.5) 04/03/21 08:55 Urine Color Yellow 04/03/21 09:49 Urine Appearance Clear (Clear) 04/03/21 09:49 Urine pH 7.5 (4.5-7.5) 04/03/21 09:49 Ur Specific [place] 1.006 (1.000-1.030) 04/03/21 09:49 Urine Protein Negative (Negative) 04/03/21 09:49 Urine Glucose (UA) Negative (Negative) 04/03/21 09:49 Urine Ketones Trace (Negative) H 04/03/21 09:49 Urine Blood Trace (Negative) H 04/03/21 09:49 Urine Nitrite Negative (Negative) 04/03/21 09:49 Urine Bilirubin Negative (Negative) 04/03/21 09:49 Urine Urobilinogen Negative (Negative) 04/03/21 09:49 Ur Leukocyte Esterase Negative (Negative) 04/03/21 09:49 Urine WBC (Auto) 0 /hpf (0-5) 04/03/21 09:49 Urine RBC (Auto) 0-4 /hpf (0-4) 04/03/21 09:49 U Hyaline Cast (Auto) 0 /lpf (0-5) 04/03/21 09:49 U Epithel Cells (Auto) 5-10 /lpf (0-5) H 04/03/21 09:49 Urine Bacteria (Auto) Negative (Negative) 04/03/21 09:49 SARS-CoV-2, RNA, NAAT NEGATIVE (NEGATIVE) 04/03/21 08:55 Impressions Chest X-Ray 04/03/21 08:41 XR chest 1V portable HISTORY: 65 years-old Female SEPSIS acute sepsis COMPARISON: None TECHNIQUE: Portable AP view of the chest FINDINGS: The cardiomediastinal and hilar silhouettes are within normal limits. No pneumothorax, pleural effusion, airspace consolidation or overt pulmonary edema. Bones of the chest appear grossly intact. IMPRESSION: No acute process. ACT 112: Negative or not required by law. The above report was generated using voice recognition software. It may contain grammatical, syntax or spelling errors. Electronically signed by: Anatoly Mcguire M.D. 04/03/2021 9:[address] 04/03/21 09:07 CT head/brain wo con CLINICAL HISTORY: 65 years-old Female with VOMITING, FALL. Acute head injury status post fall TECHNIQUE: Multiple axial CT images of the head were obtained without contrast. A dose lowering technique was utilized adhering to the principles of ALARA. CT DOSE: 863.46 mGy.cm COMPARISON: None. FINDINGS: No acute intracranial hemorrhage, midline shift, intracranial mass, hydr ocephalus, territorial ischemia or abnormal extra-axial collection.. Mild white matter hypodensities suggest chronic microvascular ischemic disease. The calvarium is intact. The paranasal sinuses, mastoid air cells, and middle ear cavities are clear. IMPRESSION: No acute intracranial abnormality or calvarial fracture. ACT 112: Negative or not required by law. The above report was generated using voice recognition software. It may contain grammatical, syntax or spelling errors. Electronically signed by: Anatoly Mcguire M.D. 04/03/2021 10:07 AM Abdomen/Pelvis CT 04/03/21 09:08 CT SCAN OF THE ABDOMEN AND PELVIS WITH IV CONTRAST CLINICAL HISTORY: Generalized abdominal pain. Vomiting. Fall. COMPARISON STUDY: Pelvic radiograph dated 03/29/2021. TECHNIQUE: Following the IV administration of 95 cc of Optiray 320, CT scan of the abdomen and pelvis is performed from the lung bases to the proximal femora. Images are reviewed in the axial, sagittal, and coronal planes. IV contrast was administered without complication. A dose lowering technique was utilized adhering to the principles of ALARA. Examination is compromised by motion ar tifact. FINDINGS: Lung bases: The heart is normal in size and without pericardial effusion. The lung bases are clear noting mild bibasilar atelectasis. Liver: The contrast-enhanced liver is normal in size, contour, and attenuation. There is no intrahepatic biliary ductal dilatation. The hepatic veins and portal veins are patent. Gallbladder: Surgically absent. Spleen: Normal in size and attenuation. Pancreas: Unremarkable. Adrenal glands: Unremarkable. Kidneys: The contrast enhanced kidneys are normal in size and without hydronephrosis. The kidneys enhance symmetrically. Abdominal vasculature: The abdominal aorta is normal in course and caliber noting moderate atherosclerotic calcification. Bowel: Question artifact versus mild infiltration around the distal stomach/duod enum. There is moderate colonic diverticulosis without CT evidence of acute diverticulitis. No bowel obstruction is identified. The appendix is not visualized. Peritoneum: There is trace fluid in the right paracolic gutter. No intraperitoneal free air is identified. Lymphadenopathy: None. Pelvic viscera: Evaluation of the pelvis is significantly degraded by streak artifact from bilateral hip arthroplasties. The pelvis viscera is not well- visualized. Imaged portions of the bladder grossly normal. Skeletal structures: The skeletal structures are osteopenic. There is mild lumbosacral spondylosis. No lytic or blastic lesions are seen. Bilateral hip arthroplasties are in place. Soft tissues: Soft tissue infiltration overlies the right hip/gluteal region, with gas seen throughout the right gluteal musculature. A serpiginous fluid collection is seen overlying the lateral aspect of the right hip and extending into the right gluteus medius muscle. A component on image #302 measures 3.3 x 1.6 cm. IMPRESSION: 1. Soft tissue edema is seen overlying the right hip and throughout the right gluteal region, with foci of soft tissue gas throughout the right gluteal musculature. Additionally, there is a serpiginous fluid collection overlying the lateral aspect of the right hip and extending into the right gluteus medius. Given history of recent hip arthroplasty this may represent expected postoperative change. The sterility of these findings cannot be evaluated by imaging and clinical correlation will be required. 2. Trace nonspecific free fluid is seen in the right paracolic gutter. 3. Question artifact versus mild infiltration around the distal stomach/duodenum. Correlate clinically for evidence of gastritis/duodenitis. This could be further assessed with endoscopy if clinically warranted. 4. Moderate colonic diverticulosis without CT evidence of acute diverticulitis. 5. Additional findings as above. ACT 112: Negative or not required by law. Electronically signed by: Harley Parrish M.D. 04/03/2021 10:10 AM
[2021-04-03] MEDS ORDERED: ACETAMINOPHEN 325 MG TAB PO PRN (13:40)
[2021-04-03] MEDS ORDERED: MELATONIN 3 MG TAB PO PRN (13:40)
[2021-04-03] MEDS: ceFAZolin 1000MG 1,000 MG/7.5 ML SYR IV SCH ×2 (14:51→21:36)
[2021-04-03] MEDS: FAMOTIDINE 20 MG in SYRINGE 3 ML IV SCH ×2 (14:52→20:47)
[2021-04-03] MEDS: NSS + 20MEQ KCL 20 MEQ/1,000 ML BAG IV SCH ×2 (14:53→23:20)
[2021-04-03] MEDS: POTASSIUM CHLORIDE / WTR 10 MEQ/100 ML PLCT IV SCH ×5 (16:12→21:36)
[2021-04-04] MEDS: ceFAZolin 1000MG 1,000 MG/7.5 ML SYR IV SCH ×2 (04:42→12:54)
[2021-04-04] MEDS: LEVOTHYROXINE SODIUM 75 MCG TABLET PO SCH (05:50)
[2021-04-04 06:09] LABS: Basophils # (auto) 0.03 K/uL (0-0.2); Basophils % (auto) 0.3 %; Eosinophils # (auto) 0.74 K/uL (0-0.5); Eosinophils % (auto) 7.9 %; Hematocrit (blood only) 28.7 % (37-47); Hemoglobin 10.2 g/dL (12.0-16.0); Immature Granulocytes # (auto) 0.02 K/uL (0.00-0.02); Immature Granulocytes % (auto) 0.2 %; Lymphocytes # (auto) 2.83 K/uL (1.2-3.4); Mean Corpuscular Hemoglobin 32.3 pg (25-34); Mean Corpuscular Hgb Conc 35.5 g/dL (32-36); Mean Corpuscular Volume 90.8 fL (80-100); Mean Platelet Volume 9.7 fL (7.4-10.4); Monocytes # (auto) 0.89 K/uL (0.11-0.59); Monocytes % (auto) 9.4 %; Neutrophils # (auto) 4.91 K/uL (1.4-6.5); Neutrophils % (auto) 52.2 %; Platelet Count 285 K/uL (130-400); RDW Coefficient of Variation 13.3 % (11.5-14.5); RDW Standard Deviation 44.5 fL (36.4-46.3); Red Blood Count 3.16 M/uL (4.2-5.4); White Blood Count 9.42 K/uL (4.8-10.8)
[2021-04-04 06:32] LABS: BUN Creatinine Ratio 10.9 (10-20); Calcium 8.3 mg/dl (8.5-10.1); Creatinine Clr Calc Pharmacy 110.2 ml/min; Est GFR (African American) 120.1 ml/min; Est GFR (Non-African American) 103.7 ml/min; Potassium 3.7 mmol/L (3.5-5.1)
[2021-04-04 06:44] LABS: Thyroid Stimulating Hormone 20.303 uIu/ml (0.300-4.500)
[2021-04-04 07:16] LABS: T4 Free Thyroxine 0.7 ng/dl (0.61-1.60)
[2021-04-04] MEDS: ENOXAPARIN INJ 40 MG/0.4 ML SYR SQ SCH (08:04)
[2021-04-04] MEDS: PYRIDOXINE HCL 50 MG TAB PO SCH (08:05)
[2021-04-04] MEDS: FAMOTIDINE 20 MG in SYRINGE 3 ML IV SCH ×2 (08:08→21:55)
[2021-04-04] MEDS: POTASSIUM CHLORIDE CRTAB 20 MEQ TABCR PO SCH ×2 (08:08→21:55)
--- NOTE | 2021-04-04 09:01 | Orthopedic Progress Note ---
Date of Service April 04, 2021 Assessment & Plan (1) History of total right hip arthroplasty: Plan: Patient looks really good PT/OT this morning She can be weightbearing as tolerated with a walker. Posterior hip precautions Silverlon dressing is to be kept in place. From orthopaedic standpoint, can discharge home when cleared by internal medicine Follow-up next week in clinic with SORIN Valdivia Admission and Anticipated Discharge Date Admission Date: April 03, 2021 Subjective Patient seen and examined on AM rounds. She states she feels much better today. Ate a good breakfast. No nausea or vomiting. No pain in her hip. She did not like the oxycodone, as it made her hallucinate and gave her headaches. She would like to go home today. Physical Exam Physical Exam: Alert, conversational and appropriate Sitting comfortably up in her chair. RLE: dressing c/d/i. Distally NVI Results & Data ([facility]) Vital Signs (Past 12 Hours) Vital Signs Temp Pulse Resp BP Pulse Ox 04/04/21 07:20 37.3 C 78 18 104/63 93 04/03/21 21:06 37.1 C 87 16 101/60 96
[2021-04-04] MEDS: PANTOprazole 40 MG TAB PO SCH (09:29)
[2021-04-04 14:58] LABS: Hematocrit (blood only) 32.4 % (37-47); Hemoglobin 10.7 g/dL (12.0-16.0)
[2021-04-04 15:18] LABS: BUN Creatinine Ratio 9.4 (10-20); Calcium 8.6 mg/dl (8.5-10.1); Creatinine Clr Calc Pharmacy 95.6 ml/min; Est GFR (African American) 114.7 ml/min; Est GFR (Non-African American) 98.9 ml/min; Potassium 3.4 mmol/L (3.5-5.1)
[2021-04-04] MEDS ORDERED: ONDANSETRON 4 MG OD TAB PO PRN (15:24)
[2021-04-04] MEDS ORDERED: POTASSIUM CHLORIDE CRTAB 20 MEQ TABCR PO STA (15:25)
[2021-04-04] MEDS ORDERED: ONDANSETRON INJ 2 MG/ML 2 ML VIAL IV PRN (15:28)
--- NOTE | 2021-04-04 15:29 | Hospitalist Progress Note ---
Date of Service April 04, 2021 Assessment & Plan (1) Nausea & vomiting: Plan: Secondary to gastritis Gastritis secondary to aspirin, spicy foods, Keflex, stress from operation. Stop antibiotics per orthopedics Switch aspirin to Lovenox as we have already done - further Lovenox dosing will be sent to her pharmacy. Continue pantoprazole and famotidine -she can be discharged on pantoprazole 40 mg p.o. daily We will continue to trend hemoglobin overnight to make sure this is not dropping given recurrent nausea Phenergan for nausea as she associates ondansetron that she was given previously with worsening nausea (although I suspect this was truly her gastritis) (2) Hallucination, visual: Plan: Secondary to opiates. Avoid opiates (3) Hypokalemia: Plan: Secondary to nausea and vomiting. Will repeat level in afternoon and continue supplementation as necessary. (4) History of total right hip arthroplasty: Plan: Appreciate orthopedics consult. Stop antibiotics. No concern postoperatively. (5) Abdominal pain: Plan: Secondary to gastritis as above. (6) Positive colorectal cancer screening using Cologuard test: Plan: Abnormal Outpt Cologuard - Pending outpatient colonoscopy for followup - No FHX colorectal cancer. Minimal information about family. - No signs of ileus/obstruction/large mass on CT (7) Asthma: Plan: Asthma, mild intermittent Patient has not used inhalers in several months, no wheezing on exam Albuterol nebulizer as needed (8) Hypothyroidism: Plan: TSH level was elevated however this is in the setting of acute illness and free T4 normal Continue levothyroxine 75 mcg p.o. daily and repeat as outpatient. Plan: DVT prophylaxis: SCDs, Lovenox Diet: Regular as tolerated not tolerating at this time due to nausea Disposition: Medical surgical CODE STATUS: Full code Admission and Anticipated Discharge Date Admission Date: April 03, 2021 Subjective Patient feels much improved and requesting to go home initially however had nausea in the afternoon related to Ancef being given and therefore she has to stay overnight. Discussed care with Dr. Correa -okay to discontinue antibiotics, okay to switch to Lovenox from aspirin to avoid gastritis Review of Systems Review of Systems: All systems reviewed & are unremarkable except as noted in Subjective Physical Exam Constitutional: WD/WN, vitals as above Eyes: + anicteric sclerae; normal pupil size ENMT: external ear and nose normal, oropharynx normal Respiratory: normal respiratory effort, lungs clear to auscultation Cardiovascular: RRR, no murmur, no edema Gastrointestinal (Abdomen): Inspection/Auscultation: normal bowel sounds Percussion/Palpation: abdomen soft; abdomen nontender, no guarding and abdomen not rigid Musculoskeletal: no cyanosis or clubbing, extremities motor strength 5/5 Skin: no rashes, warm and dry Neurologic: moves all extremities and awake; not confused Results & Data Results & Data ([facility]) Vital Signs (Past 12 Hours) Vital Signs Temp Pulse Resp BP Pulse Ox 04/04/21 07:20 37.3 C 78 18 104/63 93 PG Care Time/CCT Total # of Minutes Spent Total Time Spent with Patient: Total time spent is greater than 50% in coordination of care (as documented) at patient's floor/unit and/or counseling patient: Coding Level of Care Code 97943 Subseq Hosp Care Lvl 2 Diagnoses Nausea & vomiting R11.2 Hallucination, visual R44.1 Hypokalemia E87.6 History of total right hip arthroplasty Z96.641 Abdominal pain R10.9 Positive colorectal cancer screening using Cologuard test R19.5 Asthma J45.909 Hypothyroidism E03.9
[2021-04-04] MEDS ORDERED: PROMETHAZINE HCL 6.25 MG in SODIUM CHLORIDE 0.9% 50 ML IV STA (15:51)
[2021-04-04] MEDS ORDERED: PROMETHAZINE HCL 6.25 MG in SODIUM CHLORIDE 0.9% 50 ML IV PRN (22:00)
[2021-04-05] MEDS: LEVOTHYROXINE SODIUM 75 MCG TABLET PO SCH (05:48)
[2021-04-05 06:13] LABS: Basophils # (auto) 0.03 K/uL (0-0.2); Basophils % (auto) 0.3 %; Eosinophils # (auto) 0.68 K/uL (0-0.5); Eosinophils % (auto) 7.7 %; Hematocrit (blood only) 32.7 % (37-47); Immature Granulocytes # (auto) 0.02 K/uL (0.00-0.02); Immature Granulocytes % (auto) 0.2 %; Lymphocytes # (auto) 2.57 K/uL (1.2-3.4); Lymphocytes % (auto) 28.9 %; Mean Corpuscular Hemoglobin 30.8 pg (25-34); Mean Corpuscular Hgb Conc 33.6 g/dL (32-36); Mean Corpuscular Volume 91.6 fL (80-100); Mean Platelet Volume 9.8 fL (7.4-10.4); Monocytes # (auto) 0.92 K/uL (0.11-0.59); Monocytes % (auto) 10.4 %; Neutrophils # (auto) 4.66 K/uL (1.4-6.5); Neutrophils % (auto) 52.5 %; Platelet Count 369 K/uL (130-400); RDW Coefficient of Variation 13.1 % (11.5-14.5); RDW Standard Deviation 44.4 fL (36.4-46.3); Red Blood Count 3.57 M/uL (4.2-5.4); White Blood Count 8.88 K/uL (4.8-10.8)
[2021-04-05 06:27] LABS: BUN Creatinine Ratio 10.4 (10-20); Calcium 8.9 mg/dl (8.5-10.1); Creatinine Clr Calc Pharmacy 105.6 ml/min; Est GFR (African American) 118.5 ml/min; Est GFR (Non-African American) 102.2 ml/min; Potassium 3.7 mmol/L (3.5-5.1)
[2021-04-05] MEDS: PANTOprazole 40 MG TAB PO SCH (08:39)
[2021-04-05] MEDS: PYRIDOXINE HCL 50 MG TAB PO SCH (08:40)
[2021-04-05] MEDS: ENOXAPARIN INJ 40 MG/0.4 ML SYR SQ SCH (08:40)
[2021-04-05] MEDS: POTASSIUM CHLORIDE CRTAB 20 MEQ TABCR PO SCH (08:43)
[2021-04-05] MEDS: FAMOTIDINE 20 MG in SYRINGE 3 ML IV SCH (08:43)
--- NOTE | 2021-04-05 10:04 | Discharge Summary ---
Date of Service April 05, 2021 Admission HPI Per Admitting Provider Nanci is a six 5-year-[age] female with history of right total hip arthroplasty 03/29/2021 who was discharged home in who presents with worsening nausea, vomiting, weakness, chills without fever, and visual hallucinations.Hypotensive 80s on admit, normotensive after fluids. CT-H negative, CT-Ab normal. Ativan QT prolonged, held Zofran Patient was discharged 03/29/2021. Did take Percocet through Friday. Vomiting ov er the weekend. Unable to keep food down over the weekend. 2x falls on the walker . Oxycodone made her feel disoriented. Fell 2x in the bathroom. hot and cold chills and thirsty for several days. Endorses strange visual hallucinations, has felt like pictures have people in them looking at her, no history of hallucinations. Stopped her oxycodone Friday night (per patient had no pain in the hip just sore). Friday started getting nauseus, so took anti-nausea medication which seemed to make things worse (more nauseus + vomiting, vomiting not correlated with meals). Continues to have nausea but no main. No fever at home. Hardly eating, no appetite. Food doesn't make her nauseus, just has no appetite 'have to try and force food down.' Very tired and exhausted, but can't sleep. 'Just feel to sick to sleep.' R hip motion is actually doign well, working with home PT and has good RoM and no pain with exertion. Is tender inferior and superior to surgical incision but without crepitus, no erythema/warmth. She has not been able to take any of her postop antibiotics (Keflex) due to nausea. Denies chest pain, chest pressure, shortness of breath, difficulty breathing. Denies extremity pain, numbness, tingling. Denies focal weakness. Denies auditory hallucinations, command hallucinations. MM card last friday prior to surgery, none recently. For anxiety/insomnia Has started to have pain in her stomach and LLQ of the abdomen. Medical History: Reviewed Medications: Reviewed Surgical History: Reviewed Allergies: Reviewed Social History: Denies recent alcohol use. No tobacco use. Does have medical marijuana prescription for anxiety but has not used since Friday prior to surgery, and does not wish to use at this time as "the thought of it makes me nauseous ". Code Status: Surrogate would be son. Full Code. Principal Diagnosis Gastritis Discharge Exam Constitutional WD/WN, vitals as above Eyes + anicteric sclerae; normal pupil size ENMT external ear and nose normal, oropharynx normal Respiratory normal respiratory effort, lungs clear to auscultation Cardiovascular RRR, no murmur, no edema Gastrointestinal (Abdomen) Inspection/Auscultation: normal bowel sounds Percussion/Palpation: abdomen soft; abdomen nontender, no guarding and abdomen not rigid Musculoskeletal no cyanosis or clubbing, extremities motor strength 5/5 Skin no rashes, warm and dry Neurologic moves all extremities and awake; not confused Discharge Data Allergies Allergy/AdvReac Type Severity Reaction Status Date / Time codeine AdvReac Unknown NAUSEA Verified 04/03/21 12:21 VOMITING oxycodone AdvReac Unknown BAD DREAMS Verified 04/03/21 12:21 cefazolin [From Ancef] AdvReac Verified 04/05/21 10:03 Consultations 04/03/21 10:36 ED Decision to Admit Stat Ordered Studies 04/03/21 09:07 CT head/brain wo con Stat IMPRESSION: No acute intracranial abnormality or calvarial fracture. 04/03/21 09:08 CT abd pelvis IV con only Stat IMPRESSION: 1. Soft tissue edema is seen overlying the right hip and throughout the right gluteal region, with foci of soft tissue gas throughout the right gluteal musculature. Additionally, there is a serpiginous fluid collection overlying the lateral aspect of the right hip and extending into the right gluteus medius. Given history of recent hip arthroplasty this may represent expected postoperative change. The sterility of these findings cannot be evaluated by imaging and clinical correlation will be required. 2. Trace nonspecific free fluid is seen in the right paracolic gutter. 3. Question artifact versus mild infiltration around the distal stomach/duodenum. Correlate clinically for evidence of gastritis/duodenitis. This could be further assessed with endoscopy if clinically warranted. 4. Moderate colonic diverticulosis without CT evidence of acute diverticulitis. 5. Additional findings as above. Hospital Course (1) Nausea & vomiting: Nanci Paul is a 65 year old female observed at [facility] from April 03-2021 due to epigastric pain and nausea. She was diagnosed with gastritis secondary to aspirin use, spicy foods, Keflex and predisposed with known reflux after her recent total hip arthroplasty. This was treated with famotidine and pantoprazole she will be discharged with pantoprazole 40 mg daily for at least the next 30 days. Recommend she follows up with her PCP for ongoing management of this. Aspirin was switched to Lovenox to reduce risk of further gastritis as discussed with her orthopedic surgeon. Incidentally her potassium was noted to be 2.9 on arrival to the ICU. Possibly secondary to vomiting. This improved to 3.7 on dishcarge with supplementation however suspect she doesn't need this going forward. Recommend repeating BMP next week with her PCP. (2) Hallucination, visual: (3) Hypokalemia: (4) History of total right hip arthroplasty: (5) Abdominal pain: (6) Positive colorectal cancer screening using Cologuard test: (7) Asthma: (8) Hypothyroidism: Total Time Total Time Spent Total Time Spent (In Minutes): 35 Discharge Plan Discharge Items Patient Disposition: Home - Self-Care Reason For Visit: NAUSEA/VOMITING, HYPOKALEMIA, HALLUCINATIONS Discharge Diagnosis: Gastritis Activity: Resume your previous activity Non-emergency contact: Primary Care Provider Call non-emergency contact if: you have any medication questions and your symptoms worsen Follow-up/Referrals: Christopher Melendrez [Primary Care Provider] - 04/11/21 10:10 am Diet: Other - See Diet Comment Addtl Attending Provider Instructions: You were observed at [facility] from April 03-2021 due to epigastric pain and nausea. You were diagnosed with gastritis secondary to aspirin use, spicy foods, Keflex and predisposed with known reflux. This was treated with famotidine and pantoprazole during your inpatient stay and you will be discharged with pantoprazole 40 mg daily for at least the next 30 days. Please follow-up with your primary care physician to see whether this needs to be prolonged. Your aspirin was switched to Lovenox as this is less likely to cause gastritis and you require ongoing prophylaxis against blood clots due to your recent total knee replacement. Due to low potassium on admission recommend repeating this blood test within the next week with your primary care physician. Pending Studies at Discharge: No Stand-Alone Forms: My [facility] Intela, Smoking Cessation Medications and DC Order Prescriptions: New enoxaparin [Lovenox] 40 mg/0.4 mL syringe 40 mg subcut DAILY 24 Days Qty: 9.6 RF: 0 pantoprazole [Protonix] 40 mg tablet,delayed release (DR/EC) 40 mg PO DAILY Qty: 30 RF: 0 Continued multivitamin Tablet 1 tab PO QAM RF: 0 levothyroxine 75 mcg Tablet 75 mcg PO QAM RF: 0 albuterol sulfate [Ventolin HFA] 90 mcg/actuation Hfa Aerosol Inhaler 1 inh INHALATION QID PRN (Reason: Wheezing) RF: 0 Marijuana Topical 1 dose DAILY RF: 0 coenzyme Q10 [CoQ-10] 30 mg Capsule 30 mg PO DAILY RF: 0 Discontinued cephalexin 500 mg capsule 500 mg PO TID 7 Days Qty: 21 RF: 0 Discharge Orders: Discharge Order (Routine); Ordered 04/05/21 Ordered By: Derrell Johnson/Other Patient Handouts: Treating Gastritis, Understanding Gastritis Admission Data Admit Date/Time: 04/03/21 11:40 Attending Provider: Derrell Francis Admit Provider: Henry Swan Primary Care Provider: Christopher Melendrez Other Providers: Henry Swan ; Replaced By [facility] Other Interventions: Discharge Summary Assessment (RN) Last Done: 04/05/21 10:18 Coding Level of Care Code 13311 OBS Care - Discharge Diagnoses Nausea & vomiting R11.2 Hallucination, visual R44.1 Hypokalemia E87.6 History of total right hip arthroplasty Z96.641 Abdominal pain R10.9 Positive colorectal cancer screening using Cologuard test R19.5 Asthma J45.909 Hypothyroidism E03.9
== END 2021-04-05 11:37 | disposition home or self-care (01) ==
LOC: 3E 08:19 → ED 08:19 → SUATTDRO 11:40 → 3E 13:25
DX: E03.9 Hypothyroidism, unspecified; Z20.822 Contact with and (suspected) exposure to COVID-19; R19.5 Other fecal abnormalities; R44.1 Visual hallucinations; Z79.899 Other long term (current) drug therapy; E87.6 Hypokalemia; Z79.51 Long term (current) use of inhaled steroids; Z96.641 Presence of right artificial hip joint; R11.2 Nausea with vomiting, unspecified; J45.909 Unspecified asthma, uncomplicated; Z79.890 Hormone replacement therapy; R10.9 Unspecified abdominal pain; Z88.8 Allergy status to other drugs, medicaments and biological substances